=== PATIENT | female | born 1975 | race Caucasian/White ===

== ENCOUNTER → 2018-05-07 | Outpatient (CLI) | payer BC ==
--- NOTE | 2018-05-07 16:04 | CT ---
EXAM DESCRIPTION: Chest w/Contrast : Computed Tomography. CLINICAL HISTORY: R22.2. Tender palpable masses abutting the ribs right upper flank. Patient states a are enlarging. COMPARISON: None. TECHNIQUE: Spiral-axial scans at 5 x 5 mm intervals through the lungs and thorax with IV contrast. 2.5 x 5 mm lung algorithm axial reconstructions. Coronal and sagittal 2.0 mm Mm reconstructions. No adverse reactions. Total Exam DLP: 926.81 mGy-cm. This exam was performed according to our departmental dose-optimization program which includes automated exposure control, adjustment of the mA and/or kV according to patient size and/or use of iterative reconstruction technique; to reduce radiation dose to as low as reasonably achievable (ALARA). Nodule measurements under 10 mm are given as mean value of 3 axes diameters.. Skin marker placed on the area of tenderness. FINDINGS: Upper abdomen: A marker is in the vicinity of the lower spleen and left kidney. Normal appearance of the structures, though the left kidney is not completely visualized. No mass in the adipose tissue or the abdominal wall muscle abutting the ribs. No rib or intercostal mass. No free air or free fluid. Lungs and large airways: Mosaic parenchymal density in the lungs bilaterally. No abnormal nodules masses or infiltrates. No consolidation. 4 mm solid nodule versus pleural thickening abutting the lateral left lower lobe on lung window axial sequence 4, image 66. Pleural spaces: No pleural effusion or pneumothorax. Mediastinum and Kathleen: No enlarged nodes or dominant soft tissue masses. Great vessels and Heart: Heart size upper normal limits. Soft tissues of neck base, axillae, and chest wall: Negative. Osseous structures: Endplate spurs at some levels. No compression type vertebral body fractures. No lytic or blastic lesions. IMPRESSION: 1. No soft tissue mass, abnormal enhancement, fluid collection, or abnormality in the left lower ribs, chest wall, adipose tissue, left kidney or spleen and region of abdominal wall flank pain and tenderness. Possible intercostal lipomas, but not visualized. 2. 4 mm solid nodule left lower lobe versus focal pleural thickening. Bilateral mosaic densities in the parenchyma can be associated with early emphysematous disease. Correlate with clinical history for smoking or environmental exposure. Optional [address] lung follow-up. [facility] Best Practice recommendations according to 2017 Fleischner Society guidelines for solitary pulmonary nodules. Please see below.* *2017 Fleischner Society Recommendations for Single Solid Lung Nodule Follow-Up based on size (average of long- and short-axis diameters) <6 mm Low-Risk Patient: No routine follow-up <6 mm High-Risk Patient: Optional CT at 12 months Electronically signed by: Jeremiah Bettencourt MD 05/07/2018 4:02 PM [facility]
== END ==
LOC: CT 09:25
PROVIDERS: ATTEND Internal Medicine Endocrinology, Diabetes & Metabolism
DX: R22.2 Localized swelling, mass and lump, trunk (principal)